=== PATIENT | female | born 1960 | race Caucasian/White ===

== ENCOUNTER 2018-11-01 11:25 | Emergency (ER) | payer OTHER ==
[2018-11-01] MEDS ORDERED: Acetaminophen/HYDROcodone 325-10 MG Tab PO ONE (11:46)
--- NOTE | 2018-11-01 11:55 | EDM.PDOC ---
ED HPI GENERAL MEDICAL PROBLEM - General Chief Complaint: Back Pain or Injury Stated Complaint: BACK HURTS Time Seen by Provider: 11/01/18 11:45 Source of Information: Reports: Patient History Limitations: Reports: No Limitations - History of Present Illness INITIAL COMMENTS - FREE TEXT/NARRATIVE: This 58 yo female patient reports to the ED with lower back pain. The patient reports she just flew into [place] on Tuesday from [place] to visit family. The patient reports she started to have increased back pain Tuesday morning. The back pain has continued to get worse causing her to come into the ED. The patient reports she has a history of lower back pain and has been prescribed Tramadol in the past. The patient reports she has taken a Tramadol for the past 2 nights, but has not had any symptom relief. The patient reports she has had no history of recent falls or trauma to her back. The patient denies any incontinence or difficulties with bowel movements. Onset Date: 10/30/18 Duration: Constant, Getting Worse Location: Reports: Back (lower back) Quality: Reports: Ache, Dull Severity: Moderate Improves with: Reports: Rest Worsens with: Reports: Movement Context: Reports: Other Treatments SUPERINTENDENT JOB: Reports: Other Medication(s) (Tramadol) Lower Back Pain Score (Numeric/FACES): 10 - Related Data Allergies Allergy/AdvReac Type Severity Reaction Status Date / Time No Known Allergies Allergy Verified 11/01/18 11:31 Home Meds: Home Meds ALPRAZolam [Xanax] 0.5 mg PO BEDTIME 11/01/18 [History] traMADol [Ultram] 50 mg PO BEDTIME PRN 11/01/18 [History] Past Medical History HEENT History: Reports: None Cardiovascular History: Reports: None Respiratory History: Reports: None Gastrointestinal History: Reports: None Genitourinary History: Reports: None 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: Musculoskeletal History: Reports: Back Pain, Chronic Neurological History: Reports: None Psychiatric History: Reports: None Endocrine/Metabolic History: Reports: Vitamin D Deficiency Hematologic History: Reports: None Immunologic History: Reports: None Oncologic (Cancer) History: Reports: None Dermatologic History: Reports: None - Past Surgical History HEENT Surgical History: Reports: Other (See Below) Other HEENT Surgeries/Procedures: Eye lids raised in August to help with vision GI Surgical History: Reports: Bariatric Procedure Other GI Surgeries/Procedures: Lap Band 1999 Female Surgical History: Reports: Section, Hysterectomy Neurological Surgical History: Reports: None ED ROS GENERAL - Review of Systems Review Of Systems: ROS reveals no pertinent complaints other than HPI. ED EXAM,LOWER BACK PAIN/INJURY - Physical Exam Exam: See Below Exam Limited By: No Limitations General Appearance: Alert, WD/WN, Moderate Distress Eye Exam: Bilateral Eye: EOMI, Normal Inspection, PERRL Ears: Normal External Exam, Normal Canal, Hearing Grossly Normal, Normal TMs Nose: Normal Inspection, Normal Mucosa, No Blood Throat/Mouth: Normal Inspection, Normal Lips, Normal Teeth, Normal Gums, Normal Oropharynx, Normal Voice, No Airway Compromise Head: Atraumatic, Normocephalic Neck: Normal Inspection, Supple, Non-Tender, Full Range of Motion Respiratory/Chest: No Respiratory Distress, Lungs Clear, Normal Breath Sounds, No Accessory Muscle Use, Chest Non-Tender Cardiovascular: Normal Peripheral Pulses, Regular Rate, Rhythm, No Edema, No Gallop, No JVD, No Murmur, No Rub GI/Abdominal: Normal Bowel Sounds, Soft, Non-Tender, No Organomegaly, No Distention, No Abnormal Bruit, No Mass (Female) Exam: Deferred Rectal (Female) Exam: Deferred Back Exam: Normal Inspection, Decreased Range of Motion, Paraspinal Tenderness ( lower back (L3-L5)), Vertebral Tenderness Extremities: Normal Inspection, Normal Range of Motion, Non-Tender, No Pedal Edema, Normal Capillary Refill Neurological: Alert, Normal Mood/Affect, Oriented x 3, Abnormal Gait (due to lower back pain) Psychiatric: Normal Affect, Normal Mood Skin Exam: Warm, Dry, Intact, Normal Color, No Rash Lymphatic: No Adenopathy Course - Vital Signs Last Recorded V/S: Last Vital Signs Temp 36.9 C 11/01/18 13:32 Pulse 60 11/01/18 13:32 Resp 14 11/01/18 13:32 BP 113/57 L 11/01/18 13:32 Pulse Ox 95 11/01/18 13:32 - Orders/Labs/Meds Orders: Active Orders 24 hr Category Date Time Status Lumbar Spine 2 or 3V [CR] Urgent Exams 11/01/18 11:47 Ordered Meds: Medications Discontinued Medications Generic Name Dose Route Start Last Admin Trade Name Freq PRN Reason Stop Dose Admin Hydrocodone Bitart/Acetaminophen 1 tab 11/01/18 11:46 11/01/18 11:53 Atka 325-10 Mg PO 11/01/18 11:47 1 tab ONETIME ONE Administration Ketorolac Tromethamine 30 mg 11/01/18 13:20 11/01/18 13:27 Toradol IM 11/01/18 13:21 30 mg ONETIME ONE Administration Departure - Departure Time of Disposition: 14:31 Disposition: Home, Self-Care 01 Condition: Fair Clinical Impression: Low back pain Qualifiers: Chronicity: acute Back pain laterality: bilateral Sciatica presence: without sciatica Qualified Code(s): M54.5 - Low back pain - Discharge Information *PRESCRIPTION DRUG MONITORING PROGRAM REVIEWED*: Yes *COPY OF PRESCRIPTION DRUG MONITORING REPORT IN PATIENT KERVIN: Not Applicable Instructions: Acute Back Pain, Adult Forms: ED Department Discharge Care Plan Goals: The patient was advised of the examination and x-ray results during the visit. The patient was given an injection of Toradol (30 mg) and an oral dose of Atka (10/325) while in the ED. The patient was discharged with scripts for Toradol ( 10 mg) #20 to take 1 by mouth every 6 hours and Flexeril (10 mg) #20 to take 1 by mouth at bedtime as needed. If the patient has any additional symptoms or concerns, the patient should either return to the emergency department or visit his primary care facility. - My Orders Last 24 Hours: My Active Orders 11/01/18 11:47 Lumbar Spine 2 or 3V [CR] Urgent - Assessment/Plan Last 24 Hours: My Active Orders 11/01/18 11:47 Lumbar Spine 2 or 3V [CR] Urgent
[2018-11-01] MEDS ORDERED: Ketorolac 30 MG/ML SDV IM ONE (13:20)
== END 2018-11-01 14:37 | disposition home or self-care (01) ==
LOC: DL.ED 11:25
DX: M54.5 Low back pain (principal); Z79.899 Other long term (current) drug therapy
CPT/HCPCS: 72100; 96372; 99283-25; A9270-GY; J1885